=== PATIENT | female | born 1950 | race Asian ===

== ENCOUNTER → 2018-04-25 | Outpatient (REF) ==
[~2018-04-25] MED LIST: ASPIRIN 81M81 MG/TA2 PO; DYRENIUM100 MG PO; FLEXERIL 1010 MG/TAB PO; LOTENSIN 1010 MG/TAB PO; NORVASC 5MG5 MG/TAB PO; PROAIR HFA0.09 MG/AC IH; TRIAMTERENE-HCTZ
== END ==
LOC: ZLAB.WCH 14:35
DX: Z01.89 Encounter for other specified special examinations (principal)

== ENCOUNTER → 2018-11-23 | Outpatient (CLI) | payer MEDICARE | LOC: COL.RAD 09:37 | DX: D69.6 Thrombocytopenia, unspecified (principal) ==

== ENCOUNTER → 2019-02-20 | Outpatient (REF) | LOC: ZLAB.WCH 17:39 | DX: Z01.89 Encounter for other specified special examinations (principal) ==

== ENCOUNTER → 2019-06-18 | Outpatient (CLI) | payer MEDICARE | LOC: MC.RAD 10:41 | DX: Z12.31 Encounter for screening mammogram for malignant neoplasm of breast (principal) ==

== ENCOUNTER → 2020-05-15 | Outpatient (CLI) | payer MEDICARE | LOC: COL.RAD 12:05 | DX: M51.36 Other intervertebral disc degeneration, lumbar region (principal); M50.30 Other cervical disc degeneration, unspecified cervical region; M48.02 Spinal stenosis, cervical region; M48.07 Spinal stenosis, lumbosacral region; M48.061 Spinal stenosis, lumbar region without neurogenic claudication; M47.817 Spondylosis without myelopathy or radiculopathy, lumbosacral region; M16.11 Unilateral primary osteoarthritis, right hip ==

== ENCOUNTER 2021-07-03 07:14 | Day surgery (SDC) | payer MEDICARE ==
[~2021-07-03] VITALS: Ht 167.6 cm; Wt 123.9 kg
[2021-07-03 08:30] VITALS: BP 149/95; PULSE 94; TEMP 98.3
[2021-07-03 08:44] LABS: BASO % 0.2 % (0.0-2.0); GRAN # 8.1 (1.4-6.5); GRAN % 75.7 % (42.2-75.2); HEMATOCRIT 46.4 % (37.0-47.0); HEMOGLOBIN 14.8 g/dl (12.5-16.0); LYMPH # 1.8 (1.2-3.4); LYMPH % 16.8 % (20.0-51.0); MEAN CELL VOLUME 92 fl (80.0-100.0); MEAN CORPUSCULAR HEMOGLOBIN 30 pg (27.0-31.0); MEAN CORPUSCULAR HGB CONC 32 g/dl (33.0-37.0); MEAN PLATELET VOLUME 13.9 fl (7.4-10.4); MONO # 0.7 (0.1-0.6); MONO % 6.6 % (1.7-9.3); PLATELET COUNT 124 K/mm3 (130-400); RED BLOOD COUNT 5.02 M/mm3 (4.10-5.30)
[2021-07-03] MEDS ORDERED: CELEBREX 1100 MG/CAP PO (08:59)
[2021-07-03] MEDS ORDERED: LIORESAL 1010 MG/TAB PO (08:59)
[2021-07-03] MEDS ORDERED: MEVACOR40 MG PO (09:00)
[2021-07-03] MEDS ORDERED: LEXAPRO20 MG PO (09:00)
[2021-07-03] MEDS ORDERED: NEURONTIN300 MG/CAP PO (09:00)
[2021-07-03] MEDS ORDERED: AREDS2 (09:01)
[2021-07-03] MEDS ORDERED: NATURE'S BLEND600 M2 PO (09:02)
[2021-07-03] MEDS ORDERED: NEURIVA PLUS B1 EACH PO (09:02)
[2021-07-03] MEDS ORDERED: GARLIC100 MG PO (09:03)
[2021-07-03] MEDS ORDERED: GREEN TEA (09:03)
[2021-07-03] MEDS ORDERED: CINSULIN (09:03)
[2021-07-03] MEDS ORDERED: IMMUNE SUPPORT (09:04)
[2021-07-03] MEDS ORDERED: KRILL OIL 5001 EACH PO (09:04)
[2021-07-03 11:20] VITALS: BP 128/83; PULSE 83; TEMP 98.3
--- NOTE | 2021-07-03 11:20 | NUR ---
Pt returns to [facility], alert and oriented x3, VSS, Pt requests Diet [employer], no hungry at this time. Pt placed on O2/1L/NC because O2 sats dip down to 91% on room air. Call light in reach, at bedside. Pt denies pain or nausea at this time.
[2021-07-03 11:35] VITALS: BP 133/77; PULSE 77
--- NOTE | 2021-07-03 11:35 | NUR ---
Pt awake and alert, VSS, no nausea or pain. Pt ambulates to the bathroom without difficulty, no bleeding noted to gauze, voids without difficulty and pad applied with briefs, returns to cart without difficulty. Call light in reach.
[2021-07-03 11:50] VITALS: BP 148/89; PULSE 94
--- NOTE | 2021-07-03 11:50 | NUR ---
VSS, pt would like to go home, she is awake and alert and feeling well.
--- NOTE | 2021-07-03 12:30 | NUR ---
Discharge instructions provided to pt and her , IV discontinued, pt taken out via wheelchair and left in care of her .
[2021-07-03 12:38] VITALS: BP 137/83; PULSE 80; TEMP 98
== END 2021-07-03 12:30 | disposition home or self-care (01) ==
LOC: SDCO 07:14
PROVIDERS: Surgery
DX: Z12.11 Encounter for screening for malignant neoplasm of colon (principal); K64.1 Second degree hemorrhoids; K64.4 Residual hemorrhoidal skin tags; D12.3 Benign neoplasm of transverse colon; D69.3 Immune thrombocytopenic purpura; K57.30 Diverticulosis of large intestine without perforation or abscess without bleeding; I10 Essential (primary) hypertension; E78.00 Pure hypercholesterolemia, unspecified; M19.90 Unspecified osteoarthritis, unspecified site; G89.29 Other chronic pain; M54.9 Dorsalgia, unspecified; E78.5 Hyperlipidemia, unspecified; F32.9 Major depressive disorder, single episode, unspecified; F41.9 Anxiety disorder, unspecified; F17.210 Nicotine dependence, cigarettes, uncomplicated; Z85.828 Personal history of other malignant neoplasm of skin; Z20.822 Contact with and (suspected) exposure to COVID-19; Z79.899 Other long term (current) drug therapy; Z80.3 Family history of malignant neoplasm of breast; Z80.1 Family history of malignant neoplasm of trachea, bronchus and lung
CPT/HCPCS: J0690; J1100; J2405; J2704; J3010; J7120